=== PATIENT | male | born 1965 | race Caucasian/White ===

== ENCOUNTER 2023-07-06 13:28 | Emergency (ER) | payer OTHER, SELFPAY ==
[2023-07-06] VITALS (15 sets, daily range): BP systolic 144–160; BP diastolic 88–108; PULSE 77–87; RESP 17–18; TEMP 34.4; O2SAT 93–97; BMI 26.4
--- NOTE | 2023-07-06 13:38 | CRLHL7_ITS ---
For Patients: As a result of the Century Cures Act, medical imaging exams and procedure reports are released immediately into your electronic medical record. You may view this report before your referring provider. If you have questions, please contact your health care provider. CLINICAL HISTORY: Garbled speech. TECHNIQUE: Standard helical CT image acquisition of the brain was performed. COMPARISON: None available. FINDINGS: There is no intracranial hemorrhage, extra-axial collection, mass effect, or midline shift. Small area of hypoattenuation in the cortex/subcortical white matter of the lateral left occipital lobe may reflect an infarct of indeterminate age. Mild patchy hypoattenuation in the white matter of both hemispheres likely reflects sequela of chronic small vessel ischemia. The ventricles are normal in size and morphology. The calvarium is unremarkable. The orbits are unremarkable. The paranasal sinuses are unremarkable. The mastoid air cells are unremarkable. IMPRESSION: 1. No CT evidence of acute intracranial hemorrhage. 2. Small area of hypoattenuation in the cortex/subcortical white matter of the lateral left occipital lobe. This may reflect an age-indeterminate infarct. If there is clinical concern for pathology in this anatomical region, further assessment with MRI of the brain could be obtained. 3. Findings likely reflecting sequela of mild chronic small vessel ischemia. Please note that all CT scans at this facility use dose modulation, iterative reconstruction, and/or weight-based dosing when appropriate to reduce radiation dose to as low as reasonably achievable. Dictated by Alphonse Neff MD @ 07/06/2023 2:26:12 PM (Electronically Signed)
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
--- NOTE | 2023-07-06 13:47 | CRLHL7_ITS ---
For Patients: As a result of the Century Cures Act, medical imaging exams and procedure reports are released immediately into your electronic medical record. You may view this report before your referring provider. If you have questions, please contact your health care provider. CLINICAL HISTORY: Acute neurological deficit. TECHNIQUE: CTA neck with contrast bolus tracking. 3D angiographic rendering using maximum intensity projection (MIP) and images permanently archived. COMPARISON: None available. FINDINGS: The great vessels are patent. The common carotid arteries are patent. The proximal ICAs are patent without signficant stenoses by NASCET criteria. The more distal cervical ICAs are patent. The origins of the vertebral arteries are patent. The cervical segments of the vertebral arteries are patent. IMPRESSION: Patent cervical arterial vasculature without hemodynamically significant luminal stenosis. Please note that all CT scans at this facility use dose modulation, iterative reconstruction, and/or weight-based dosing when appropriate to reduce radiation dose to as low as reasonably achievable. Dictated by Alphonse Neff MD @ 07/06/2023 2:29:27 PM (Electronically Signed)
--- NOTE | 2023-07-06 14:01 | ED.NURSE ---
To CTA via cart.
--- NOTE | 2023-07-06 14:06 | CRLHL7_ITS ---
For Patients: As a result of the Century Cures Act, medical imaging exams and procedure reports are released immediately into your electronic medical record. You may view this report before your referring provider. If you have questions, please contact your health care provider. CLINICAL HISTORY: Acute neurological deficit. TECHNIQUE: CTA head with contrast bolus tracking. 3D angiographic rendering using maximum intensity projection (MIP) and images permanently archived. COMPARISON: None available. FINDINGS: No intracranial proximal large vessel occlusion. Scattered intracranial atherosclerotic disease with severe luminal stenosis of the mid to distal M1 segment of the left MCA and mild luminal stenoses of the mid M1 segment of the right MCA as well as the supraclinoid segment of the right ICA. No evidence of cerebral aneurysm. No findings to suggest arterial-venous shunting lesion. IMPRESSION: Intracranial atherosclerotic disease, as above, with severe luminal stenosis of the [id number] M1 segment of the left MCA. Please note that all CT scans at this facility use dose modulation, iterative reconstruction, and/or weight-based dosing when appropriate to reduce radiation dose to as low as reasonably achievable. Dictated by Alphonse Neff MD @ 07/06/2023 2:36:54 PM (Electronically Signed)
[2023-07-06 14:09] LABS: Basophils Percent Auto 0.8 % (0.0-3.0); Hematocrit 65.6 % (37.0-53.0); Hemoglobin* 21.2 gm/dL (13.5-17.5); Immature Granulocytes Pct Auto 0.5 %; Lymphocytes Percent Auto 7.4 % (20-44); Mean Corpuscular HGB Conc 32 gm/dL (32-36); Mean Corpuscular Hemoglobin 25 pg (26-34); Mean Corpuscular Volume 77 fL (80-100); Monocytes Percent Auto 5.3 % (0.0-11.0); Platelet Count* 277 K/uL (140-440); RDW Coefficient of Variation % 19.7 % (11.5-15.5); Red Blood Count 8.54 m/uL (4.30-5.90); White Blood Count* 13.04 K/uL (4.50-11.00)
[2023-07-06 14:16] LABS: Slide Review Reflex No
[2023-07-06 14:38] LABS: Albumin* 4.3 g/dL (3.3-5.0); Chloride* 105 mmol/L (96-114); Potassium* 4.9 mmol/L (3.6-5.1); Sodium* 137 mmol/L (135-149)
--- NOTE | 2023-07-06 14:39 | ED.NURSE ---
Pharmacy contacted to mix TNK. Patient weighed in room and chart updated with actual weight.
[2023-07-06 14:40] LABS: Creatinine* 0.9 mg/dL (0.5-1.5); Est. Creatinine Clearance* 96.45; Estimated Glomerular Filt Rate 100 ml/min
[2023-07-06 14:41] LABS: Alanine Aminotransferase* 30 U/L (4-50); Alkaline Phosphatase* 59 U/L (40-150); Aspartate Amino Transferase* 61 U/L (12-35); Bilirubin Direct* 0.7 mg/dL (0.0-0.5); Bilirubin Total* 1.5 mg/dL (0.1-1.5); Blood Urea Nitrogen* 19 mg/dL (7-30); Calcium* 8.8 mg/dL (8.4-10.6); Carbon Dioxide* 22 mmol/L (20-32); Glucose* 79 mg/dL (60-115)
[2023-07-06] MEDS: TENECTEPLASE 5 MG/ML inj 20 MG IVP (14:53)
--- NOTE | 2023-07-06 15:56 | ED.NURSE ---
Patient transfered via [facility] to room 6209 at [place]. Symptoms remain the same as at time of admission. Did endorse new frontal headache rated 2/10. MD was made aware.
== END 2023-07-06 16:02 | disposition short-term general hospital (02) ==
PROVIDERS: Emergency Provider Emergency Medicine Emergency Medical Services
DX: I63.9 Cerebral infarction, unspecified (principal)
CPT/HCPCS: 36415; 70450; 70496; 70498; 80048; 80076; 85025; 94761; 96374; 99285; 99291; A0425; A0426; J3101; Q9967